=== PATIENT | female | born 1960 | race Caucasian/White ===

== ENCOUNTER 2016-09-28 11:29 | Inpatient (IN) | payer SELFPAY ==
[~2016-09-28] VITALS: Ht 162.6 cm; Wt 65.8 kg
[2016-09-28] MEDS ORDERED: ONDANSETRON HCL/PF 4 MG/2 ML VIAL IVP ONE (12:00)
[2016-09-28] MEDS ORDERED: IV NS 0.9% 1,000 ML BAG IV ONE ×2 (12:00→13:30)
[2016-09-28] MEDS ORDERED: ONDANSETRON HCL/PF 4 MG/2 ML VIAL ONE ×2 (12:07→22:05)
[2016-09-28] MEDS ORDERED: IV NS 0.9% 1,000 ML ONE ×2 (12:07→13:34)
[2016-09-28] MEDS ORDERED: IV SET PRIMARY 1 EA INFUS.SET MC ONE ×2 (12:07→13:34)
[2016-09-28 12:11] LABS: BASOPHILS % (AUTO) 0.3 % (0.0-2.0); DIFF TOTAL % 100 %; EOSINOPHILS % (AUTO) 0.2 % (0.0-6.0); HEMATOCRIT 33 % (33-45); HEMOGLOBIN 10.6 g/dL (11.5-14.8); LYMPHOCYTES # (AUTO) 0.7 /CMM (0.8-4.8); LYMPHOCYTES % (AUTO) 13.9 % (20.0-44.0); MEAN CORPUSCULAR HEMOGLOBIN 26 PG (26.0-33.0); MEAN CORPUSCULAR HGB CONC 33 g/dl (31.0-36.0); MEAN CORPUSCULAR VOLUME 79 fL (82-100); MONOCYTES # (AUTO) 0.1 /CMM (0.1-1.30); MONOCYTES % (AUTO) 2.5 % (2.0-12.0); NEUTROPHILS # (AUTO) 4.3 /CMM (1.8-8.9); NEUTROPHILS % (AUTO) 83.1 % (43.0-81.0); PLATELET COUNT (AUTO) 425 /CMM (150-450); RED BLOOD CELL COUNT(AUTO) 4.09 MIL/uL (4.0-5.2); WHITE BLOOD COUNT (AUTO) 5.1 K/uL (4.3-11.0)
[2016-09-28 12:18] LABS: ANION GAP 15 (5-14); CALCIUM, SERUM 9.2 mg/dL (8.5-10.1); CARBON DIOXIDE 28 mmol/L (21-32); CHLORIDE 102 mmol/L (98-107); CREATININE 0.6 mg/dL (0.6-1.3); GFR 104 mL/min (>60); GLUCOSE 139 mg/dL (74-106); SODIUM SERUM 141 mmol/L (136-145); UREA NITROGEN, BLOOD 8 mg/dL (7-18)
[2016-09-28 12:24] LABS: ALANINE AMINOTRANSFERASE 14 U/L (12-78); ALBUMIN 3.1 g/dL (3.4-5.0); ASPARTATE AMINOTRANSFERASE 32 U/L (15-37); BILIRUBIN,TOTAL 0.3 mg/dL (0.2-1.0); TOTAL PROTEIN, SERUM 7.4 g/dL (6.4-8.2)
[2016-09-28 12:25] LABS: INDIRECT BILIRUBIN 0.3 mg/dL (0.0-1.1)
[2016-09-28 12:27] LABS: TROPONIN I < 0.017 ng/mL (0.00-0.056)
[2016-09-28] MEDS ORDERED: ONDANSETRON 4 MG TAB.RAPDIS ONE (16:10)
[2016-09-28] MEDS ORDERED: ONDANSETRON 4 MG TAB.RAPDIS SL ONE (16:30)
[2016-09-28 18:25] VITALS: BP 105/77
[2016-09-28 20:00] VITALS: BP 104/66
[2016-09-28] MEDS ORDERED: IV NS 0.9% 1,000 ML IV PRN (21:19)
[2016-09-28] MEDS ORDERED: Z GUARD REMEDY 2 OZ OINT TP PRN (21:30)
[2016-09-28] MEDS ORDERED: HYDROCODONE/APAP 5/325MG 1 EACH TABLET PO PRN (21:30)
[2016-09-28] MEDS ORDERED: ENOXAPARIN SODIUM 40 MG/0.4 ML DISP.SYRIN SQ SCH (21:30)
[2016-09-28] MEDS ORDERED: ZOLPIDEM TARTRATE 5 MG TABLET PO PRN (21:30)
[2016-09-28] MEDS ORDERED: MAGNESIUM HYDROXIDE 30 ML UDC PO PRN (21:30)
[2016-09-28] MEDS ORDERED: ONDANSETRON HCL/PF 4 MG/2 ML VIAL IVP PRN (21:30)
[2016-09-28] MEDS ORDERED: MAG HYDROX/AL HYDROX/SIMETH 30 ML UDC PO PRN (21:30)
[2016-09-28] MEDS ORDERED: ACETAMINOPHEN 325 MG TABLET PO PRN (21:30)
[2016-09-29] MEDS ORDERED: PANTOPRAZOLE 40 MG TABLET.DR PO SCH (07:30)
== END 2016-09-29 02:30 | disposition left against medical advice (07) | DRG 181 ==
LOC: ER 11:30 → MEDSG2 18:53
PROVIDERS: ADMIT Internal Medicine; ATTEND Internal Medicine
DX: C34.90 Malignant neoplasm of unspecified part of unspecified bronchus or lung (principal); E87.2 Acidosis; D63.8 Anemia in other chronic diseases classified elsewhere; G89.29 Other chronic pain; Z85.3 Personal history of malignant neoplasm of breast; Z90.10 Acquired absence of unspecified breast and nipple
CPT/HCPCS: 36415; 80048-TC; 80076-TC; 83605-TC; 83690-TC; 84484-TC; 85025-TC; 87081-TC; A4606; J2405; J7030; Q0162; Z7610